=== PATIENT | male | born 1965 | race Caucasian/White ===

== ENCOUNTER 2017-12-07 21:15 | Emergency (ER) | payer OTHER ==
[2017-12-07] MEDS: EPINEPHrine 1:10,000 1 MG/10 ML Syringe IVPUSH PRN ×4 (21:22→21:38)
[2017-12-07] MEDS: Sodium Bicarbonate 8.4% 50 MEQ/50 ML Syringe IVPUSH PRN ×3 (21:24→21:32)
[2017-12-07] MEDS ORDERED: Calcium Chloride 10% 1 GM/10 ML Syringe IVPUSH ONE (21:25)
[2017-12-07 21:47] LABS: CHLORIDE,CL 103 mEq/L (98-106); SODIUM,NA 140 mEq/L (136-145)
--- NOTE | 2017-12-08 21:10 | EDM.PDOC ---
ED HPI GENERAL MEDICAL PROBLEM - General Chief Complaint: CPR in Progress Stated Complaint: code blue Time Seen by Provider: 12/07/17 21:15 Source of Information: Reports: EMS, Family - History of Present Illness INITIAL COMMENTS - FREE TEXT/NARRATIVE: 52 year old patient presents per EMS in full arrest. Patient was at home with , advised her he wasn't feeling well and collapsed at home. EMS was called. On arrival for EMS, patient was unresponsive. AID was applied as patient did not have pulse. Initially AED advised to shock but patient started to arouse. Did inform and EMS that he wasn't in pain and complained of shortness of breath. Then again went unresponsive and CPR was started. Enroute to our facility, patient was given epi x3 and was shocked x1. ET was placed by assembly detailer after initially having Adeel Tube. On arrival to ER, CPR remains in progress. Ventilated by ET with BVM. Pupils fixed and dilated. Rhythm PEA. IV infusing NS to left antecubital. Patient has history of HTN, Diabetes and BPH. Had been feeling well per . Onset: Today, Sudden Duration: Minutes: (patient down 45 minutes by arrival) Treatments PLATFORM ENGINEER: Reports: CPR, Intubation, IV/IO, Oxygen, See EMS Report, Other ( see below) Other Treatments PLATFORM ENGINEER: EPI, DEFIB - Related Data Allergies Allergy/AdvReac Type Severity Reaction Status Date / Time No Known Allergies Allergy Verified 12/07/17 22:02 Home Meds: Home Meds Lisinopril 5 mg PO DAILY 03/24/14 [History] Sildenafil [Viagra] 1 tab PO ASDIRECTED PRN 03/24/14 [History] Insulin Glarg,Human.Rec.Analog [Lantus Solostar] 52 units SUBCUT DAILY 12/07/17 [History] atorvaSTATin [Lipitor] 10 mg PO BEDTIME 12/08/17 [History] metFORMIN HCl [Metformin HCl] 1,000 mg PO BID 12/08/17 [History] Past Medical History Cardiovascular History: Reports: High Cholesterol, Hypertension Genitourinary History: Reports: BPH Endocrine/Metabolic History: Reports: Diabetes, Type II Social & Family History - Tobacco Use Years of Tobacco use: 10 Used Tobacco, but Quit: Yes Month/Year Tobacco Last Used: 20 years ago Second Hand Smoke Exposure: No - Alcohol Use Days Per Week of Alcohol Use: 0 - Recreational Drug Use Recreational Drug Use: No ED ROS GENERAL - Review of Systems Review Of Systems: Unable To Obtain ED EXAM, CPR - Physical Exam Exam: See Below Limited By: Unresponsive Eye Exam: Bilateral Eye: Other (pupils fixed and dilated ) Respiratory Chest: Other (no ) Cardiovascular: CPR In Progress (ventilated by ET tube) Neurological: Unresponsive Skin Exam: Cyanosis Course - Orders/Labs/Meds Orders: Active Orders 24 hr Category Date Time Status Oxygen Therapy, ED [RC] ASDIRECTED Care 12/07/17 22:12 Active EPINEPHrine [EPINEPHrine 1:10,000] Med 12/08/17 11:04 Active 1 mg IVPUSH ASDIRECTED PRN Sodium Bicarbonate [Sodium Bicarbonate 8.4%] Med 12/07/17 21:24 Active 50 meq IVPUSH ASDIRECTED PRN Medication Orders Epinephrine HCl (Epinephrine 1:10,000) 1 mg IVPUSH ASDIRECTED PRN PRN Reason: Other Last Admin: 12/07/17 21:38 Dose: 1 mg Admin: 12/07/17 21:33 Dose: 1 mg Admin: 12/07/17 21:29 Dose: 1 mg Admin: 12/07/17 21:22 Dose: 1 mg Sodium Bicarbonate (Sodium Bicarbonate 8.4%) 50 meq IVPUSH ASDIRECTED PRN PRN Reason: Other Last Admin: 12/07/17 21:32 Dose: 50 meq Admin: 12/07/17 21:29 Dose: 50 meq Admin: 12/07/17 21:24 Dose: 50 meq Labs: Laboratory Tests 12/07/17 12/07/17 12/07/17 Range/Units 21:30 21:30 21:30 WBC 15.1 H (5.0-10.0) 10^3/uL RBC 5.89 (4.50-6.00) 10^6/uL Hgb 15.3 (14.0-18.0) g/dL Hct 48.1 (40.0-54.0) % MCV 81.7 L (82.0-94.0) fL MCH 26.0 L (27.0-32.0) pg MCHC 31.8 L (33.0-38.0) g/dL RDW Coeff of Sonali 13.8 (11.0-15.0) % Plt Count 145 L (150-400) 10^3/uL Add Manual Diff Yes Neutrophils % (Manual) 38 (35-85) % Band Neutrophils % 1 (0-5) % Lymphocytes % (Manual) 49 (21-55) % Monocytes % (Manual) 9 (2-12) % Eosinophils % (Manual) 3 (0-5) % Absolute Neutrophils 5.89 (1.80-7.00) 10^3/uL Lymphocytes # (Manual) 7.40 H (1.00-4.80) 10^3/uL Monocytes # (Manual) 1.36 H (0.00-0.80) 10^3/uL Eosinophils # (Manual) 0.45 (0.00-0.45) 10^3/uL PT 10.7 (9.7-12.3) SEC INR 1.03 (0.92-1.18) APTT 27.6 (24.5-30.9) SEC D-Dimer, Quantitative 16.37 H (0.00-0.50) Sodium 140 (136-145) mEq/L Potassium 2.6 L* D (3.5-5.0) mEq/L Chloride 103 (98-106) mEq/L Carbon Dioxide 22 (21-32) mmol/L BUN 33 H (7-18) mg/dL Creatinine 1.5 H D (0.7-1.3) mg/dL Est Cr Clr Drug Dosing TNP Estimated GFR (MDRD) 49 L (>=60) mL/min Glucose 496 H* D (75-99) mg/dL Calcium 8.0 L (8.4-10.1) mg/dL Lactate Dehydrogenase 399 H (100-190) U/L Creatine Kinase 156 (35-232) U/L Troponin I 0.047 (0.00-0.06) ng/mL Meds: Medications Generic Name Dose Route Start Last Admin Trade Name Freq PRN Reason Stop Dose Admin Epinephrine HCl 1 mg 12/08/17 11:04 12/07/17 21:38 Epinephrine 1:10,000 IVPUSH 1 mg ASDIRECTED PRN Administration Other Sodium Bicarbonate 50 meq 12/07/17 21:24 12/07/17 21:32 Sodium Bicarbonate 8.4% IVPUSH 50 meq ASDIRECTED PRN Administration Other Discontinued Medications Generic Name Dose Route Start Last Admin Trade Name Freq PRN Reason Stop Dose Admin Calcium Chloride 1 gm 12/07/17 21:25 12/07/17 21:25 Calcium Chloride 10% IVPUSH 12/07/17 21:26 1 gm ONETIME ONE Administration - Re-Assessments/Exams Free Text/Narrative Re-Assessment/Exam: 12/07/2017 ACLS continues. Patient was given epi, bicarb and calcium chloride as in PEA, no response Patient received a total of epi x4, bicarb x3, IV fluids with no improvement in status. PCO2 remained at 8 with good ventilatory support given. Ezequiel in place providing CPR. Pupils fixed and dilated. Cyanotic. No change in status despite efforts. Discussed at length with and ultimately due to severity of illness/ prognosis, decision was made to stop resuscitative measures. See documentation recorded by Gunnar. Departure - Departure Time of Disposition: 21:40 Disposition: 20 Preliminary Cause of *Q: Cardiac Arrest Clinical Impression: Cardiac arrest - Discharge Information Referrals: Jose De Jesus Spears MD [Primary Care Provider] - Forms: ED Department Discharge Additional Instructions: Discussed autopsy with . Do request an autopsy to be done. home notified. [facility] - My Orders Last 24 Hours: My Active Orders 12/07/17 21:24 Sodium Bicarbonate [Sodium Bicarbonate 8.4%] 50 meq IVPUSH ASDIRECTED PRN 12/07/17 22:12 Oxygen Therapy, ED [] ASDIRECTED 12/08/17 11:04 EPINEPHrine [EPINEPHrine 1:10,000] 1 mg IVPUSH ASDIRECTED PRN - Assessment/Plan Last 24 Hours: My Active Orders 12/07/17 21:24 Sodium Bicarbonate [Sodium Bicarbonate 8.4%] 50 meq IVPUSH ASDIRECTED PRN 12/07/17 22:12 Oxygen Therapy, ED [] ASDIRECTED 12/08/17 11:04 EPINEPHrine [EPINEPHrine 1:10,000] 1 mg IVPUSH ASDIRECTED PRN
== END 2017-12-07 23:30 | disposition expired ==
LOC: CC.ED 21:15
DX: I46.9 Cardiac arrest, cause unspecified (principal); I10 Essential (primary) hypertension; E78.00 Pure hypercholesterolemia, unspecified; E11.9 Type 2 diabetes mellitus without complications; Z87.891 Personal history of nicotine dependence; Z79.4 Long term (current) use of insulin; Z79.899 Other long term (current) drug therapy
CPT/HCPCS: 36415; 80048; 82550; 83615; 84484; 85025; 85379; 85610; 85730; 92950; 96374; 96375; 99285; J0171